=== PATIENT | male | born 1950 | race Two or more races ===

== ENCOUNTER 2022-07-05 20:37 | Inpatient (IN) ==
[2022-07-05] MEDS ORDERED: Iodixanol (CONTRAST) 320 MG/ML 100 ML SDV IV ONE (20:55)
[2022-07-05 21:05] LABS: ABS Eosinophils 0.2 10^3/ul (0-0.6); ABS Lymphocytes 1.9 10^3/ul (1.0-4.8); ABS Monocytes 0.6 10^3/ul (0-0.8); ABS Neutrophils 4.6 10^3/ul (1.5-7.7); Eosinophil % 2.1 %; Hematocrit 36 % (42-52); Hemoglobin 11.8 g/dL (14.0-18.0); Mean Corpuscular HGB Conc 33 g/dL (31-36); Mean Corpuscular Hemoglobin 29 pg (27-31); Mean Corpuscular Volume 88 fL (80-94); Mean Platelet Volume 8.6 fL (7.4-10.4); Platelet Count 195 10^3/uL (150-450); Red Blood Count 4.06 10^6 /uL (4.18-5.48); Red Cell Distribution Width 16 % (10-15); White Blood Count 7.3 10^3/uL (3.5-10.8)
[2022-07-05] MEDS ORDERED: TENECTEPLASE 50 MG VIAL KIT 5 MG/ML (reconstituted) IV ONE ×2 (21:20→21:22)
[2022-07-05 21:25] LABS: Activated Partial Thrombo Time 28.4 seconds (26.0-38.0); INR 1.14 (0.88-1.18)
[2022-07-05 21:44] LABS: Albumin 2.8 g/dL (3.2-5.2); Albumin/Globulin Ratio 1.2 (1-3); Globulin 2.4 g/dL (2-4); HDL Cholesterol 40.4 mg/dL; Potassium 3.9 mmol/L (3.5-5.0); Total Bilirubin 0.4 mg/dL (0.2-1.0); Total Protein 5.2 g/dL (6.4-8.9); eGFR CKD-EPI 95.5 (>60)
[2022-07-05] MEDS ORDERED: hydrALAZINE 20 mg/ml 1 ML Vial IV IV SLOW PU ONE (21:50)
[2022-07-05 22:52] LABS: Magnesium 1.5 mg/dL (1.9-2.7); Phosphorus 2.7 mg/dL (2.5-5.0)
[2022-07-05] MEDS ORDERED: hydrALAZINE 20 mg/ml 1 ML Vial IV IV SLOW PU PRN ×2 (23:04→23:42)
[2022-07-05] MEDS ORDERED: Magnesium Sulf 4 GM/100 ML IV 4,000 MG/100 ML BAG IVPB ONE (23:27)
[2022-07-05] MEDS ORDERED: niCARdipine 0.1MG/ML IVPREMIX 20 MG/200 ML BAG IV SCH (23:45)
[2022-07-06] MEDS: HYDROcodone/ACETAMIN 5/325 mg TAB PO PRN ×2 (00:31→05:04)
[2022-07-06 02:28] LABS: Urine Appearance Clear; Urine Bilirubin Negative (Negative); Urine Blood 1+ (Negative); Urine Color Straw; Urine Glucose Negative (Negative); Urine Ketones Negative (Negative); Urine Nitrite Negative (Negative); Urine Protein Negative (Negative); Urine Specific Gravity 1.011 (1.002-1.030); Urine Urobilinogen Negative (Negative)
[2022-07-06 02:29] LABS: Urine Bacteria Absent (Absent); Urine Red Blood Cell Trace(0-2/hpf) (Absent); Urine Squamous Epithelial Cell Present (Absent); Urine White Blood Cell Trace(0-5/hpf) (Absent)
[2022-07-06 04:37] LABS: ABS Basophils 0.1 10^3/ul (0-0.2); ABS Eosinophils 0.1 10^3/ul (0-0.6); ABS Lymphocytes 1.6 10^3/ul (1.0-4.8); ABS Monocytes 0.6 10^3/ul (0-0.8); ABS Neutrophils 5.9 10^3/ul (1.5-7.7); Eosinophil % 1.5 %; Hematocrit 39 % (42-52); Hemoglobin 13.5 g/dL (14.0-18.0); Lymphocyte % 19.8 %; Mean Corpuscular HGB Conc 35 g/dL (31-36); Mean Corpuscular Hemoglobin 29 pg (27-31); Mean Corpuscular Volume 85 fL (80-94); Mean Platelet Volume 8.2 fL (7.4-10.4); Platelet Count 205 10^3/uL (150-450); Red Blood Count 4.61 10^6 /uL (4.18-5.48); Red Cell Distribution Width 16 % (10-15); White Blood Count 8.3 10^3/uL (3.5-10.8)
[2022-07-06 04:42] LABS: INR 1.1 (0.88-1.18)
[2022-07-06] MEDS ORDERED: Lidocaine PATCH 5% PATCH TRANSDERM ONE (05:16)
[2022-07-06] MEDS ORDERED: Morphine 2 MG/ML SYRINGE IV ONE (05:19)
[2022-07-06 05:35] LABS: Calcium 8.2 mg/dL (8.6-10.3); Magnesium 2.7 mg/dL (1.9-2.7); Phosphorus 2.1 mg/dL (2.5-5.0); Potassium 3.4 mmol/L (3.5-5.0); eGFR CKD-EPI 100.6 (>60)
[2022-07-06] MEDS: KCL 20 MEQ/100 ML IVPREMIX 20 MEQ/100 ML BAG IV SCH ×2 (05:56→08:19)
[2022-07-06 08:03] LABS: High Sensitivity Troponin 1 Hr 14 pg/mL (<20)
[2022-07-06] MEDS ORDERED: Naloxone 0.4 mg VIAL 0.4 mg/ml 1 ml VIAL IV PUSH PRN (08:11)
[2022-07-06] MEDS ORDERED: Acetaminophen IV 1 GM/100ML 1,000 MG/100 ML BAG IV ONE (08:25)
[2022-07-06] MEDS: Acetaminophen IV 1 GM/100ML 1,000 MG/100 ML BAG IV SCH ×2 (15:05→21:43)
[2022-07-06] MEDS ORDERED: LORazepam 2 mg VIAL 1 ml IV PUSH PRN (18:41)
[2022-07-06] MEDS ORDERED: Lorazepam PYXIS KEY PRN (18:41)
[2022-07-07] MEDS: Acetaminophen IV 1 GM/100ML 1,000 MG/100 ML BAG IV SCH (05:08)
[2022-07-07 05:33] LABS: Hematocrit 41 % (42-52); Hemoglobin 13.5 g/dL (14.0-18.0); Mean Corpuscular HGB Conc 33 g/dL (31-36); Mean Corpuscular Hemoglobin 29 pg (27-31); Mean Corpuscular Volume 87 fL (80-94); Mean Platelet Volume 8.5 fL (7.4-10.4); Platelet Count 218 10^3/uL (150-450); Red Blood Count 4.67 10^6 /uL (4.18-5.48); Red Cell Distribution Width 16 % (10-15); White Blood Count 8.3 10^3/uL (3.5-10.8)
[2022-07-07 06:19] LABS: Calcium 8.5 mg/dL (8.6-10.3); Magnesium 1.8 mg/dL (1.9-2.7); Phosphorus 2.8 mg/dL (2.5-5.0); Potassium 3.9 mmol/L (3.5-5.0); eGFR CKD-EPI 96.7 (>60)
[2022-07-07] MEDS ORDERED: Magnesium Sulfate 2 gm BAG 2 GM/50 ML BAG IVPB ONE (06:31)
[2022-07-07 06:45] VITALS: BP 130/67
[2022-07-07] MEDS ORDERED: Aspirin EC 81 mg TAB.EC (enteric coated) PO SCH (09:00)
[2022-07-07] MEDS ORDERED: Potassium Chlor 20 meq TAB.ER PO ONE (09:01)
[2022-07-07] MEDS ORDERED: Ondansetron 4 mg VIAL 2 MG/ML 2 ml VIAL IV ONE (10:14)
[2022-07-07] MEDS ORDERED: Ondansetron 4 mg VIAL 2 MG/ML 2 ml VIAL ONE (10:16)
== END 2022-07-07 11:45 | disposition home or self-care (01) | DRG 62 ==
LOC: ED 20:37 → EDHOLD 21:50 → ICU 23:11
PROVIDERS: ADMIT Internal Medicine; ATTEND Internal Medicine

== ENCOUNTER 2022-07-31 03:25 | Inpatient (IN) ==
[2022-07-31] MEDS ORDERED: Morphine 10 MG/ML VIAL (1 ml) IV ONE (06:32)
[2022-07-31 06:57] LABS: ABS Basophils 0.1 10^3/ul (0-0.2); ABS Eosinophils 0.3 10^3/ul (0-0.6); ABS Lymphocytes 1.5 10^3/ul (1.0-4.8); ABS Monocytes 1.2 10^3/ul (0-0.8); ABS Neutrophils 7.6 10^3/ul (1.5-7.7); Eosinophil % 2.5 %; Hematocrit 39 % (42-52); Lymphocyte % 13.9 %; Mean Corpuscular HGB Conc 34 g/dL (31-36); Mean Corpuscular Hemoglobin 29 pg (27-31); Mean Corpuscular Volume 88 fL (80-94); Mean Platelet Volume 8.6 fL (7.4-10.4); Nucleated Red Blood Cells % 0.1; Platelet Count 313 10^3/uL (150-450); Red Blood Count 4.43 10^6 /uL (4.18-5.48); Red Cell Distribution Width 16 % (10-15); White Blood Count 10.7 10^3/uL (3.5-10.8)
[2022-07-31] MEDS ORDERED: fentaNYL 100 mcg/2 ml 50 MCG/ML VIAL IV SLOW PU ONE (07:32)
[2022-07-31] MEDS ORDERED: Ondansetron 4 mg VIAL 2 MG/ML 2 ml VIAL IV ONE (07:41)
[2022-07-31 07:49] LABS: ALT 28 U/L (7-52); Albumin 3.4 g/dL (3.2-5.2); Albumin/Globulin Ratio 1.3 (1-3); Alkaline Phosphatase 96 U/L (35-149); Blood Urea Nitrogen 14 mg/dL (6-24); C Reactive Protein 121.38 mg/L (<8.01); CO2 Carbon Dioxide 34 mmol/L (22-32); Calcium 9.1 mg/dL (8.6-10.3); Chloride 93 mmol/L (101-111); Globulin 2.7 g/dL (2-4); Glucose 83 mg/dL (70-100); Lipase 19 U/L (11.0-82.0); Sodium 133 mmol/L (135-145); Total Protein 6.1 g/dL (6.4-8.9); eGFR CKD-EPI 102.6 (>60)
[2022-07-31] MEDS ORDERED: Iohexol 350 (CONTRAST) 500 ML MDV IV ONE (08:01)
[2022-07-31 08:13] LABS: Anion Gap 6 mmol/L (2-11)
[2022-07-31] MEDS ORDERED: HYDROmorphone 1 MG/1 ML SYRINGE IV ONE ×3 (08:15→10:25)
[2022-07-31] MEDS ORDERED: Famotidine IV 10 MG/ML 2 ml VIAL (20 mg) IV SLOW PU ONE (08:57)
[2022-07-31 09:46] LABS: High Sensitivity Troponin 1 Hr 39 pg/mL (<20)
[2022-07-31] MEDS ORDERED: cefTRIAXone 1 gm/50 mL D5W 1 GM/50 ML BAG IV ONE (09:48)
[2022-07-31] MEDS ORDERED: Ondansetron 4 mg VIAL 2 MG/ML 2 ml VIAL IV PRN (10:51)
[2022-07-31] MEDS ORDERED: HYDROmorphone 0.5 MG/0.5 ML SYRINGE IV SLOW PU PRN (11:04)
[2022-07-31] MEDS: Enoxaparin 40 MG/0.4 ML SYR SUBCUT SCH (11:05)
[2022-07-31] MEDS ORDERED: Naloxone 0.4 mg VIAL 0.4 mg/ml 1 ml VIAL IV PUSH PRN (11:05)
[2022-07-31] MEDS ORDERED: Magnesium Hydroxide LIQ 30 ML UDC PO PRN (11:07)
[2022-07-31] MEDS ORDERED: HYDROmorphone 1 MG/1 ML SYRINGE IV SLOW PU PRN (11:57)
[2022-07-31] MEDS: HYDROmorphone 1 MG/1 ML SYRINGE IV SLOW PU PRN ×4 (12:29→22:43)
[2022-07-31] MEDS: Pantoprazole VIAL 40 MG VIAL IV SCH (12:30)
[2022-07-31] MEDS: Acetaminophen IV 1 GM/100ML 1,000 MG/100 ML BAG IV PRN (13:03)
[2022-07-31] MEDS: fentaNYL PATCH 75 MCG/HR 1 PATCH TRANSDERM SCH (13:44)
[2022-07-31] MEDS: Senna TAB 8.6 mg TAB PO SCH (20:22)
[2022-07-31] MEDS ORDERED: oxyCODONE SR 20 mg TAB PO SCH (21:00)
[2022-07-31] MEDS: fentaNYL Patch Check Q Shift NOTE FOLLOW UP SCH (22:40)
[2022-08-01] MEDS: HYDROmorphone 1 MG/1 ML SYRINGE IV SLOW PU PRN (00:07)
[2022-08-01 04:37] LABS: Hematocrit 37 % (42-52); Mean Corpuscular HGB Conc 33 g/dL (31-36); Mean Corpuscular Hemoglobin 29 pg (27-31); Mean Corpuscular Volume 88 fL (80-94); Mean Platelet Volume 8.7 fL (7.4-10.4); Platelet Count 355 10^3/uL (150-450); Red Blood Count 4.21 10^6 /uL (4.18-5.48); Red Cell Distribution Width 17 % (10-15)
[2022-08-01 05:10] LABS: Calcium 9.2 mg/dL (8.6-10.3); Creatinine, Serum 0.93 mg/dL (0.67-1.17); Potassium 4.5 mmol/L (3.5-5.0); eGFR CKD-EPI 87.2 (>60)
[2022-08-01 05:28] LABS: ABS Basophils 0.1 10^3/ul (0-0.2); ABS Lymphocytes 1.8 10^3/ul (1.0-4.8); ABS Monocytes 2.1 10^3/ul (0-0.8); Eosinophil % 0.2 %; Lymphocyte % 12.9 %
[2022-08-01] MEDS ORDERED: NS 0.9% 1000 ml BAG 1,000 ML IV SCH (05:30)
[2022-08-01] MEDS: Acetaminophen IV 1 GM/100ML 1,000 MG/100 ML BAG IV PRN ×2 (06:40→15:33)
[2022-08-01] MEDS: fentaNYL Patch Check Q Shift NOTE FOLLOW UP SCH ×2 (07:42→19:32)
[2022-08-01] MEDS ORDERED: Aspirin EC 81 mg TAB.EC (enteric coated) PO SCH (09:00)
[2022-08-01] MEDS: Enoxaparin 40 MG/0.4 ML SYR SUBCUT SCH (10:25)
[2022-08-01] MEDS: Pantoprazole VIAL 40 MG VIAL IV SCH (10:26)
[2022-08-01] MEDS ORDERED: Lactated Ringers 1000 ml BAG 1,000 ML IV ONE (12:33)
[2022-08-01 14:47] LABS: Urine Appearance Cloudy; Urine Bilirubin Negative (Negative); Urine Blood Negative (Negative); Urine Color Yellow; Urine Glucose Negative (Negative); Urine Ketones Negative (Negative); Urine Nitrite Negative (Negative); Urine Protein 2+(100 mg/dL) (Negative); Urine Specific Gravity 1.025 (1.002-1.030); Urine Urobilinogen Negative (Negative)
[2022-08-01 14:50] LABS: Urine Bacteria Absent (Absent); Urine Red Blood Cell 1+(3-5/hpf) (Absent); Urine White Blood Cell 1+(6-10/hpf) (Absent)
[2022-08-01 16:22] LABS: Magnesium 1.6 mg/dL (1.9-2.7)
[2022-08-01 16:28] LABS: TSH Ultra Thyroid Stim Horm 3.95 mcIU/mL (0.34-5.60)
[2022-08-01] MEDS ORDERED: Magnesium Sulfate 2 gm BAG 2 GM/50 ML BAG IVPB ONE (16:55)
[2022-08-01] MEDS: Enoxaparin 60 MG/0.6 ML SYR SUBCUT SCH (20:58)
[2022-08-01] MEDS: Senna TAB 8.6 mg TAB PO SCH (21:00)
[2022-08-02 06:29] LABS: Hematocrit 33 % (42-52); Hemoglobin 10.9 g/dL (14.0-18.0); Mean Corpuscular HGB Conc 33 g/dL (31-36); Mean Corpuscular Hemoglobin 29 pg (27-31); Mean Corpuscular Volume 87 fL (80-94); Mean Platelet Volume 8.9 fL (7.4-10.4); Platelet Count 325 10^3/uL (150-450); Red Blood Count 3.73 10^6 /uL (4.18-5.48); Red Cell Distribution Width 17 % (10-15); White Blood Count 10.2 10^3/uL (3.5-10.8)
[2022-08-02 06:43] LABS: Calcium 8.6 mg/dL (8.6-10.3); Creatinine, Serum 0.72 mg/dL (0.67-1.17); Magnesium 1.8 mg/dL (1.9-2.7); Potassium 4.3 mmol/L (3.5-5.0); eGFR CKD-EPI 97.1 (>60)
[2022-08-02] MEDS: fentaNYL Patch Check Q Shift NOTE FOLLOW UP SCH ×2 (07:15→19:09)
[2022-08-02] MEDS: Acetaminophen IV 1 GM/100ML 1,000 MG/100 ML BAG IV PRN (07:42)
[2022-08-02] MEDS ORDERED: Magnesium Sulfate 2 gm BAG 2 GM/50 ML BAG IVPB ONE (08:44)
[2022-08-02] MEDS ORDERED: Aspirin EC 81 mg TAB.EC (enteric coated) PO SCH (09:00)
[2022-08-02] MEDS ORDERED: Simethicone SUSP ORALSYR 66.66 MG/ML PO PRN (09:01)
[2022-08-02] MEDS: Enoxaparin 60 MG/0.6 ML SYR SUBCUT SCH (10:22)
[2022-08-02] MEDS: fentaNYL PATCH 75 MCG/HR 1 PATCH TRANSDERM SCH (14:33)
[2022-08-02] MEDS: Senna TAB 8.6 mg TAB PO SCH (21:13)
[2022-08-03] MEDS: Enoxaparin 60 MG/0.6 ML SYR SUBCUT SCH (00:05)
[2022-08-03 07:00] LABS: Hematocrit 34 % (42-52); Hemoglobin 11.2 g/dL (14.0-18.0); Mean Corpuscular HGB Conc 33 g/dL (31-36); Mean Corpuscular Hemoglobin 29 pg (27-31); Mean Corpuscular Volume 88 fL (80-94); Mean Platelet Volume 8.7 fL (7.4-10.4); Platelet Count 381 10^3/uL (150-450); Red Blood Count 3.84 10^6 /uL (4.18-5.48); Red Cell Distribution Width 17 % (10-15); White Blood Count 8.2 10^3/uL (3.5-10.8)
[2022-08-03 07:01] LABS: INR 1.05 (0.88-1.18)
[2022-08-03 07:12] LABS: Calcium 8.6 mg/dL (8.6-10.3); Creatinine, Serum 0.69 mg/dL (0.67-1.17); Magnesium 1.9 mg/dL (1.9-2.7); Potassium 4.2 mmol/L (3.5-5.0); eGFR CKD-EPI 98.3 (>60)
[2022-08-03] MEDS: fentaNYL Patch Check Q Shift NOTE FOLLOW UP SCH (07:14)
[2022-08-03] MEDS ORDERED: Enoxaparin 60 MG/0.6 ML SYR SUBCUT SCH (09:00)
[2022-08-03 12:55] VITALS: BP 113/60
== END 2022-08-03 13:00 | disposition home or self-care (01) | DRG 313 ==
LOC: ED 03:25 → EDHOLD 03:25 → SUATTDRO 10:51 → SSU 16:12 → MEDTELE 08-01 04:49 → SUATTDRO 08-02 10:46
PROVIDERS: ADMIT Internal Medicine; ATTEND Internal Medicine